=== PATIENT | female | born 1985 | race Two or more races ===

== ENCOUNTER → 2024-11-26 | Outpatient (CLI) | payer OTHER, SELFPAY ==
--- NOTE | 2024-11-26 10:57 | XR_ITS ---
Examination: Lumbar spine, 5 views Technique: Lumbar spine AP, lateral, coned lateral lower lumbar spine, bilateral obliques 5 views Exam date and time: November 26, 2024 at 1059 hours INDICATIONS: Low back pain beginning 2 years ago FINDINGS: Intrauterine device upper central pelvis No lumbar fracture Mild disc narrowing L5-S1 No spondylolisthesis IMPRESSION: Mild disc narrowing L5-S1
== END | disposition home or self-care (01) ==
LOC: CDIM 10:49
PROVIDERS: PCP Physician Assistant; Referring Provider Chiropractor; Visit Provider Chiropractor
DX: M48.07 Spinal stenosis, lumbosacral region (principal)
CPT/HCPCS: 72110